=== PATIENT | male | born 1975 | race Caucasian/White ===

== ENCOUNTER 2017-11-01 11:58 | Emergency (ER) | payer OTHER ==
[~2017-11-01] VITALS: Ht 177.8 cm; Wt 90.7 kg
== END 2017-11-01 13:41 | disposition home or self-care (01) ==
LOC: ER 11:58
DX: M62.838 Other muscle spasm (principal)

== ENCOUNTER 2018-04-19 12:57 | Emergency (ER) | payer OTHER ==
[~2018-04-19] VITALS: Ht 175.3 cm; Wt 88.5 kg
== END 2018-04-19 18:26 | disposition home or self-care (01) ==
LOC: ER 12:57
DX: M62.838 Other muscle spasm (principal); M54.2 Cervicalgia